=== PATIENT | female | born 1950 | race Caucasian/White ===

== ENCOUNTER 2020-08-31 14:04 | Inpatient (IN) ==
[2020-08-31] MEDS ORDERED: TYLENOL 325 MG TAB PO PRN (19:01)
[2020-08-31] MEDS ORDERED: BENADRYL INJ 50 MG VIAL IVP PRN (19:01)
[2020-08-31] MEDS ORDERED: NS 500 ML IV 500 ML IV ONE (19:01)
[2020-08-31 19:46] LABS: BASOPHILS # (AUTO) 0.1 X10^3/uL (0.0-0.1); HEMATOCRIT 20.9 % (36.0-47.0); LYMPHOCYTES # (AUTO) 1.8 X10^3/uL (1.3-2.9); NEUTROPHILS # (AUTO) 3.1 x10^3/uL (2.2-4.8); WHITE BLOOD COUNT 5.3 X10^3/uL (3.6-10.0)
[2020-08-31 19:51] LABS: BASOPHILS % (AUTO) 1.4 % (0.2-1.0); EOSINOPHILS % (AUTO) 0.7 % (0.9-2.9); LYMPHOCYTES % (AUTO) 33.2 % (21.0-51.0); MEAN CORPUSCULAR HEMOGLOBIN 24.5 pg (27.0-34.0); MEAN CORPUSCULAR HGB CONC 31.2 g/dL (33.0-35.0); MEAN CORPUSCULAR VOLUME 78.3 fL (80.0-100.0); MEAN PLATELET VOLUME 7.8 fL (7.4-11.0); MONOCYTES # (AUTO) 0.4 x10^3/uL (0.3-0.8); MONOCYTES % (AUTO) 6.9 % (0.0-13.0); NEUTROPHILS % (AUTO) 57.8 % (42.0-75.0); PLATELET COUNT 440 X10^3/uL (150.0-450.0); RED BLOOD COUNT 2.66 X10^6/uL (3.5-5.4); RED CELL DISTRIBUTION WIDTH 17.3 % (11.6-16.5)
[2020-08-31 19:53] LABS: HEMOGLOBIN 6.5 g/dL (12.0-16.0)
[2020-08-31 19:57] LABS: ALANINE AMINOTRANSFERASE 20 Units/L (12-78); ALBUMIN 3.9 g/dL (3.4-5.0); ALKALINE PHOSPHATASE 73 Units/L (46-116); ASPARTATE AMINO TRANSFERASE 15 Units/L (15-37); BLOOD UREA NITROGEN 17 mg/dL (7-18); CALCIUM 9.4 mg/dL (8.5-10.1); CARBON DIOXIDE 25.9 mmol/L (21-32); CHLORIDE 105 mmol/L (98-107); COR NA(FOR HYPERGLY) 141 mmol/L (136-145); SODIUM 140 mmol/L (136-145); TOTAL PROTEIN 7.4 g/dL (6.4-8.2); eGFR NON BLACK RACES > 60 (>60)
--- NOTE | 2020-08-31 20:44 | DR.CONSULT ---
<Zoe Lofton - Last Filed: 08/31/20 20:39> Consult - Consultation for Day of: Date: 08/31/20 - Chief Complaint Chief Complaint: Patient referred for GI Bleed. Patient with complaints of dysphagia, melena 2-3 weeks ago. - Allergies Allergies/Adverse Reactions: Allergies Allergy/AdvReac Type Severity Reaction Status Date / Time No Known Drug Allergies Allergy Verified 08/31/20 19:15 [NKDA] - History of Present Illness History of Present Illness: Patient is a 70 yo female who was referred for GI Bleed. Patient with complaints of dysphagia, melena 2-3 weeks ago. Patien denies dyspepsia, nausea, vomiting, abdominal pain, consitpation, diarrhea and hematochezia. Last colon and EGD was [address] Toscano. Hgb 6.5, Hct 20.9, Plt 440, BUN 17, Creatinine 0.80, T. Bili 0.5, AST 15, ALT 20, ALP 73 - Past Medical History Past Medical History: Diabetes, Hypertension - Social History Does patient currently use any type of tobacco product: No Have you used tobacco products in the last 12 months: No Type of Tobacco Use: None Alcohol Use: None Drug Use: None - Medications Home Medications: No Known Drug Allergies [NKDA] Allergy (Verified 08/31/20 19:15) - Review of Systems Gastrointestinal: Melena. denies: See HPI, Nausea, Vomiting, Abdominal Pain, Diarrhea, Constipation, Hematochezia, Other Oriented: Normal Eyes: Normal Ear: Normal Nose: Normal Throat: Normal Respiratory: Clear Throughout Cardiovascular: Normal Auscultation: Bowel Sounds: Normal Palpation: Normal, Other (no distention). negative: Spleen Enlarged, Liver Enlarged, Mass Pulsatile Tenderness: Normal (non tender) Skin: Normal Musculoskeletal: Normal Psychiatric: Normal Mood Description: Calm Affect: Normal Speech Pattern: Clear, Appropriate - Plan Plan: Assessment. 1. Anemia r/o GI Loss. Plan. 1. Monitor Hgb, Transfuse, Protonix IV, EGD in am. Plan reviewed with Dr. Gomez <NATALIO GOMEZ - Last Filed: 09/10/20 13:01> Consult - Medications Home Medications: No Known Drug Allergies [NKDA] Allergy (Verified 08/31/20 19:15) CONTINUE taking the following medications clopidogrel 75 mg PO DAILY 08/31/20 [History] eszopiclone 3 mg PO HS 08/31/20 [History] glipizide 2.5 mg PO BID 08/31/20 [History] metoprolol succinate 50 mg PO DAILY 08/31/20 [History] rosuvastatin 40 mg PO QHS 08/31/20 [History] New Prescriptions clonazepam [Klonopin] 0.5 mg PO QHS PRN #30 tab MDD 1 09/03/20 [Rx] famotidine [Pepcid] 40 mg PO BID #60 tab 09/03/20 [Rx] iron-folic acid-mv, min cmb#15 [Hemocyte-Plus] 1 cap PO QAM #30 cap 09/03/20 [Rx] pantoprazole 40 mg PO BID #60 tab 09/03/20 [Rx] - Physical Exam Vital Signs: Temperature 98.0 F Pulse Rate [Left Brachial] 86 Pulse Rate [Right Brachial] 79 Pulse Rate [Brachial] 71 Respiratory Rate 20 Blood Pressure [Right Arm] 139/63 Blood Pressure [Left Arm] 137/63 O2 Sat by Pulse Oximetry 92 Oriented: negative: Normal, Time, Person, Place, Not Oriented, Unable to test, Other Eyes: negative: Normal, Blurred Vision, Diplopia, Discharge, Pain, Redness, Photophobia, Other Ear: negative: Normal, Right, Left, Swelling, Ecchymosis, Hemotypanum, Abrasion, Laceration Nose: negative: Normal, Injected, Discharge, Blood, Other Respiratory: Clear Throughout Cardiovascular: negative: Normal, Tachycardia, Bradycardia, Irregular, S3, S4, Systolic, Diastolic, Murmur, Edema, Other Auscultation: Bowel Sounds: negative: Normal, Bruit, Absent, Increased, Decreased, High Pitched, Other Tenderness: negative: Normal, Diffuse, RUQ, RLQ, LUQ, LLQ, Epigastric, Periumbilical, Suprapubic, Mild, Moderate, Severe, Rebound, Guarding, Rigidity, Other Psychiatric: Normal Mood Description: Calm Speech Pattern: Clear, Appropriate
[2020-08-31 21:38] VITALS: BMI 29.8
[2020-08-31] MEDS: PROTONIX INJ 40 MG VIAL IVP SCH (22:30)
[2020-08-31] MEDS: PEPCID 20 MG IV PREMIX* 20 MG/50 ML BAG IV SCH (22:30)
[2020-08-31] MEDS: NS 1000 ML 1,000 ML IV SCH (22:30)
[2020-09-01] MEDS: PROTONIX INJ 40 MG VIAL IVP SCH ×3 (00:30→21:17)
[2020-09-01] MEDS: PEPCID 20 MG IV PREMIX* 20 MG/50 ML BAG IV SCH ×3 (00:30→21:17)
[2020-09-01 04:51] LABS: BASOPHILS # (AUTO) 0.1 X10^3/uL (0.0-0.1); BASOPHILS % (AUTO) 1.6 % (0.2-1.0); EOSINOPHILS # (AUTO) 0.1 x10^3/uL (0.0-0.2); EOSINOPHILS % (AUTO) 1.3 % (0.9-2.9); HEMATOCRIT 27.4 % (36.0-47.0); HEMOGLOBIN 8.7 g/dL (12.0-16.0); LYMPHOCYTES # (AUTO) 2.5 X10^3/uL (1.3-2.9); LYMPHOCYTES % (AUTO) 51.5 % (21.0-51.0); MEAN CORPUSCULAR HEMOGLOBIN 25.9 pg (27.0-34.0); MEAN CORPUSCULAR HGB CONC 31.6 g/dL (33.0-35.0); MEAN CORPUSCULAR VOLUME 82.1 fL (80.0-100.0); MEAN PLATELET VOLUME 7.4 fL (7.4-11.0); MONOCYTES # (AUTO) 0.5 x10^3/uL (0.3-0.8); MONOCYTES % (AUTO) 10.9 % (0.0-13.0); NEUTROPHILS # (AUTO) 1.7 x10^3/uL (2.2-4.8); NEUTROPHILS % (AUTO) 34.7 % (42.0-75.0); PLATELET COUNT 325 X10^3/uL (150.0-450.0); RED BLOOD COUNT 3.34 X10^6/uL (3.5-5.4); RED CELL DISTRIBUTION WIDTH 17.5 % (11.6-16.5); WHITE BLOOD COUNT 4.9 X10^3/uL (3.6-10.0)
[2020-09-01 05:01] LABS: ALANINE AMINOTRANSFERASE 16 Units/L (12-78); ALBUMIN 3.3 g/dL (3.4-5.0); ALKALINE PHOSPHATASE 63 Units/L (46-116); ASPARTATE AMINO TRANSFERASE 10 Units/L (15-37); BLOOD UREA NITROGEN 15 mg/dL (7-18); CALCIUM 8.6 mg/dL (8.5-10.1); CARBON DIOXIDE 27.4 mmol/L (21-32); CHLORIDE 108 mmol/L (98-107); COR CA(FOR HYPOALB) 9.2 mg/dL (8.5-10.1); CREATININE 0.63 mg/dL (0.55-1.02); SODIUM 143 mmol/L (136-145); TOTAL PROTEIN 6.4 g/dL (6.4-8.2); eGFR NON BLACK RACES > 60 (>60)
--- NOTE | 2020-09-01 10:07 | DR.H&P ---
H&P - History & Physical for Day of: H&P Date: 08/31/20 - Chief Complaint Chief Complaint: ANEMIA, SOB, WEAKNESS, MELENA - History of Present Illness History of Present Illness: IS A 70 YEAR OLD PATIENT OF [facility]. [facility] CONSULTED US FOR DIRECT ADMISSION OF PATIENT DUE TO ANEMIA, MELENA, SOB, AND GENERALIZED WEAKNESS. OUTPATIENT LABS WERE OBTAINED ON 08/28/2020 AND WERE REPORTED BACK ON 08/31/2020. HER HGB ON THOSE LABS WAS 6.2, HCT 21.3, RBC 2.49. PATIENT REPORTS THAT SHE HAS HAD DARK, TARRY STOOLS FOR THE PAST THREE WEEKS. SHE DENIES DYSPEPSIA, NAUSEA, VOMITING, ABDOMINAL PAIN, CONSTIPATION, DIARRHEA, OR HEMATOCHEZIA. HER LAST COLONOSCOPY OR EGD WAS FOUR YEARS AGO WITH . HER PMH INCLUDES CAD, CO, HYPERLIPIDEMIA, CARDIAC STENTS X 3, DIABETES MELLITUS TYPE II, ANEMIA, , AND TONSILLECTOMY. ON ARRIVAL TO THE HOSPITAL, VITALS WERE 98.0-88-20-98%-130/66. LABS WERE OBTAINED. ABNORMAL LAB VALUES INCLUDED THE FOLLOWING: RBC 2.66, HGB 6.5, HCT 20.9, GLUCOSE 152. WE ORDERED FOR A STOOL TO BE COLLECTED TO CHECK FOR OCCULT BLOOD. WE CONSULTED WITH . HE PLANS FOR AN EGD TODAY. WE ARE IN AGREEMENT WITH PLANS. SHE WAS STARTED ON NORMAL SALINE AT 80 ML/HR, PROTONIX 40MG IV BID, PEPCID 20MG IV Q12H. WE TRANSFUSED TWO UNITS OF PRBC ON ADMISSION AND PRE-MEDICATED WITH BENADRYL 25MG IV X 1 AND TYLENOL 650MG PO X 1 PRIOR TO TRANSFUSION. WE WILL REVIEW HER HOME MEDICATIONS TODAY. OTHERWISE, WE WILL CONTINUE WITH CURRENT PLAN OF CARE AND FOLLOW UP WITH AM LABS. TIME SPENT ON CLINICAL ASSESSMENT, REVIEWING LABS AND IMAGING, DECISION MAKING, AND DOCUMENTATION GREATER THAN 75 MINUTES. - Past Medical History Past Medical History: Anemia, Coronary Artery Disease, Diabetes, Dyslipidemia, Hypertension, CO - Past Surgical History Surgical History: Angioplasty/Stents, , Tonsillectomy - Family History Family Medical History: Diabetes Mellitus, CO, Hypertension - Social History Does patient currently use any type of tobacco product: No Have you used tobacco products in the last 12 months: No Type of Tobacco Use: None Alcohol Use: Occasionally Drug Use: None - Medications Home Medications: No Known Drug Allergies [NKDA] Allergy (Verified 08/31/20 19:15) CONTINUE taking the following medications clopidogrel 75 mg PO DAILY 08/31/20 [History] eszopiclone 3 mg PO HS 08/31/20 [History] glipizide 2.5 mg PO BID 08/31/20 [History] metoprolol succinate 50 mg PO DAILY 08/31/20 [History] rosuvastatin 40 mg PO QHS 08/31/20 [History] - Review of Systems Constitutional: Weakness, Malaise Eyes: No Symptoms Reported ENT: No Symptoms Reported Respiratory: Shortness of Breath Cardiovascular: No Symptoms Reported Gastrointestinal: See HPI, Melena. denies: Nausea, Vomiting, Abdominal Pain, Diarrhea, Constipation, Hematochezia Genitourinary: No Symptoms Reported Musculoskeletal: No Symptoms Reported Skin: No Symptoms Reported Neurological: Weakness - Physical Exam Vital Signs: Temperature 98.9 F Pulse Rate [Right Brachial] 79 Pulse Rate [Brachial] 71 Respiratory Rate 18 Blood Pressure [Right Arm] 131/65 Blood Pressure [Left Arm] 157/65 O2 Sat by Pulse Oximetry 96 Oriented: Normal Eyes: Normal Ear: Normal Nose: Normal Throat: Normal Respiratory: Diminished Throughout Cardiovascular: Normal : Normal Auscultation: Bowel Sounds: Normal Palpation: Normal Tenderness: Normal Skin: Normal Musculoskeletal: Normal Psychiatric: Normal Mood Description: Calm Affect: Normal Speech Pattern: Clear - Assessment/Plan (1) Anemia Qualifiers: Anemia type: iron deficiency Iron deficiency anemia type: chronic blood loss Qualified Code(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
[2020-09-01] MEDS ORDERED: XYLOCAINE 1 % (PLAIN) ONE (15:10)
[2020-09-01] MEDS ORDERED: DIPRIVAN VIAL ONE (15:10)
[2020-09-01] MEDS ORDERED: DIPRIVAN VIAL 20 ML ONE (15:12)
[2020-09-01] MEDS ORDERED: KETALAR ONE (15:12)
[2020-09-01] MEDS ORDERED: XYLOCAINE 2 % (PLAIN) ONE (15:12)
[2020-09-01] MEDS: TOPROL XL PO SCH (16:54)
[2020-09-01] MEDS: CRESTOR TAB 10 MG PO SCH (21:16)
[2020-09-01] MEDS: NS 1000 ML 1,000 ML IV SCH (21:23)
[2020-09-02] MEDS: NS 1000 ML 1,000 ML IV SCH ×2 (05:37→11:29)
[2020-09-02 06:29] LABS: BASOPHILS # (AUTO) 0.1 X10^3/uL (0.0-0.1); BASOPHILS % (AUTO) 0.8 % (0.2-1.0); EOSINOPHILS # (AUTO) 0.1 x10^3/uL (0.0-0.2); EOSINOPHILS % (AUTO) 1.2 % (0.9-2.9); HEMATOCRIT 26.6 % (36.0-47.0); HEMOGLOBIN 8.7 g/dL (12.0-16.0); LYMPHOCYTES % (AUTO) 29.3 % (21.0-51.0); MEAN CORPUSCULAR HEMOGLOBIN 26.4 pg (27.0-34.0); MEAN CORPUSCULAR HGB CONC 32.7 g/dL (33.0-35.0); MEAN CORPUSCULAR VOLUME 80.8 fL (80.0-100.0); MEAN PLATELET VOLUME 7.5 fL (7.4-11.0); MONOCYTES # (AUTO) 0.6 x10^3/uL (0.3-0.8); MONOCYTES % (AUTO) 8.2 % (0.0-13.0); NEUTROPHILS # (AUTO) 4.2 x10^3/uL (2.2-4.8); NEUTROPHILS % (AUTO) 60.5 % (42.0-75.0); PLATELET COUNT 307 X10^3/uL (150.0-450.0); RED CELL DISTRIBUTION WIDTH 17.9 % (11.6-16.5); WHITE BLOOD COUNT 6.9 X10^3/uL (3.6-10.0)
[2020-09-02 06:38] LABS: ALANINE AMINOTRANSFERASE 17 Units/L (12-78); ALBUMIN 3.2 g/dL (3.4-5.0); ALKALINE PHOSPHATASE 62 Units/L (46-116); ASPARTATE AMINO TRANSFERASE 12 Units/L (15-37); BLOOD UREA NITROGEN 12 mg/dL (7-18); CALCIUM 8.5 mg/dL (8.5-10.1); CARBON DIOXIDE 27.2 mmol/L (21-32); CHLORIDE 109 mmol/L (98-107); COR CA(FOR HYPOALB) 9.1 mg/dL (8.5-10.1); SODIUM 142 mmol/L (136-145); TOTAL PROTEIN 6.3 g/dL (6.4-8.2); eGFR NON BLACK RACES > 60 (>60)
[2020-09-02] MEDS: PEPCID 20 MG IV PREMIX* 20 MG/50 ML BAG IV SCH ×2 (08:37→21:19)
[2020-09-02] MEDS: DULCOLAX TAB EC 5 MG PO SCH ×2 (08:37→18:12)
[2020-09-02] MEDS: TOPROL XL PO SCH (08:37)
[2020-09-02] MEDS: PROTONIX INJ 40 MG VIAL IVP SCH ×2 (08:37→21:19)
--- NOTE | 2020-09-02 10:39 | RAD ---
HISTORYPreop colonoscopySTUDYChest AP portableCOMPARISONNoneFINDINGSThe heart is enlarged. No definite congestive heart failure is noted. No acute alveolar infiltrates are present. No pleural effusions are identified. Bilateral interstitial infiltrates are present. There of uncertain duration without previous films with which to compare. Bony thorax is unremarkable.IMPRESSIONMild cardiomegaly without congestive heart failureDiffuse mild interstitial lung changes of uncertain durationElectronically signed by: MICHELLE ESCOBAR (Sep 02, 2020 10:37:35)
[2020-09-02] MEDS ORDERED: MIRALAX POWDER (255 GRAMS BTL) PO ONE (11:33)
--- NOTE | 2020-09-02 11:33 | PCM.PROG ---
Progress Note - Progress Note for Day of Date of Exam: 09/02/20 - Subjective Subjective: WAS ADMITTED FOR TREATMENT OF ANEMIA, GI BLEED, MELENA, AND GENERALIZED WEAKNESS. SHE HAS RECEIVING TWO UNITS OF PRBC SINCE ADMISSION. TODAY, SHE IS ALERT AND ORIENTED, LYING IN BED ON MORNING ROUNDS. SHE CONTINUES WITH COMPLAINTS OF WEAKNESS, BUT DENIES ANY DARK, TARRY STOOLS SINCE ADMISSION. SHE CONTINUES WITH COMPLAINTS OF SHORTNESS OF BREATH AT TIMES. ON EXAMINATION, HEART IS REGULAR IN RATE AND RHYTHM. BILATERAL LUNGS ARE NOTED WITH DIMINISHED LUNG SOUNDS THROUGHOUT. ABDOMEN IS ROUND, SOFT, AND NON-TENDER WITH NORMAL BOWEL SOUNDS NOTED IN ALL QUADRANTS. HER VITALS THIS MORNING ARE: 98.6-80-20-94%-137/66. LABS WERE OBTAINED. ABNORMAL LAB VALUES INCLUDE THE FOLLOWING: RBC 3.30, HGB 8.7, HCT 26.6, CHLORIDE 109, AST 12, TOTAL PROTEIN 6.3, ALBUMIN 3.2. AN EGD WAS PERFORMED BY YESTERDAY. IT REVEALED: ANTRAL GASTRIC ULCER, EROSIVE GASTRITIS, 5CM HIATAL HERNIA, DISTAL ESOPHAGITIS WITH A STRICTURE, AND GASTRIC POLYPS. WE OBTAINED A CHEST XRAY DUE TO HER COMPLAINTS OF SHORTNESS OF BREATH. IT REVEALED: The heart is enlarged. No definite congestive heart failure is noted. No acute alveolar infiltrates are present. No pleural effusions are identified. Bilateral interstitial infiltrates are present. There of uncertain duration without previous films with which to compare. Bony thorax is unremarkable. SHE IS CURRENTLY RECEIVING NORMAL SALINE AT 80 ML/HR, PROTONIX 40MG IV BID, PEPCID 20MG IV Q12H, DULCOLAX 10MG PO BID, METOPROLOL SUCCINATE 50MG PO DAILY, MIRALAX 17G PO DAILY, CRESTOR 40MG PO HS. TODAY, WE WILL ADD HEMOCYTE PLUS 1 TABLET DAILY AND CHECK A BNP LEVEL AND OBTAIN AN ECHO. OTHERWISE, WE PLAN TO FOLLOW UP WITH AM LABS AND CONTINUE TO MONITOR. - Past Medical Family Social History Past Med/Fam/Surg Hx: No changes since H&P Allergies: Allergies No Known Drug Allergies [NKDA] Allergy (Verified 08/31/20 19:15) - Review of Systems ROS: No change since H&P - Vital Signs and I&O's Vital Signs: Temperature 98.6 F Pulse Rate [Left Brachial] 80 Pulse Rate [Right Brachial] 75 Pulse Rate [Brachial] 71 Respiratory Rate 20 Blood Pressure [Right Arm] 126/59 Blood Pressure [Left Arm] 137/66 O2 Sat by Pulse Oximetry 94 Intake and Output: Intake & Output 08/30/20 08/31/20 09/01/20 09/02/20 11:59 11:59 11:59 11:59 Intake Total 1631 / 1631 1754 / 1754 Output Total 2049 Balance 1631 / 1631 -296 / -296 - Physical Exam Oriented: Normal Eyes: Normal Ear: Normal Nose: Normal Throat: Normal Respiratory: Normal, Generalized, Diminished Cardiovascular: Normal : Normal Auscultation: Bowel Sounds: Normal Palpation: Normal Tenderness: Normal Skin: Normal Musculoskeletal: Normal Psychiatric: Normal Mood Description: Calm Affect: Normal Speech Pattern: Clear, Appropriate - Laboratory and Diagnostics Result Diagrams: 09/02/20 05:20 09/02/20 05:20 Labs: Laboratory WBC 6.9 X10^3/uL (3.6-10.0) 09/02/20 05:20 RBC 3.30 X10^6/uL (3.5-5.4) L 09/02/20 05:20 Hgb 8.7 g/dL (12.0-16.0) L 09/02/20 05:20 Hct 26.6 % (36.0-47.0) L 09/02/20 05:20 MCV 80.8 fL (80.0-100.0) 09/02/20 05:20 MCH 26.4 pg (27.0-34.0) L 09/02/20 05:20 MCHC 32.7 g/dL (33.0-35.0) L 09/02/20 05:20 RDW 17.9 % (11.6-16.5) H 09/02/20 05:20 Plt Count 307 X10^3/uL (150.0-450.0) 09/02/20 05:20 MPV 7.5 fL (7.4-11.0) 09/02/20 05:20 Neut % (Auto) 60.5 % (42.0-75.0) 09/02/20 05:20 Lymph % (Auto) 29.3 % (21.0-51.0) 09/02/20 05:20 [place] % (Auto) 8.2 % (0.0-13.0) 09/02/20 05:20 Eos % (Auto) 1.2 % (0.9-2.9) 09/02/20 05:20 Baso % (Auto) 0.8 % (0.2-1.0) 09/02/20 05:20 Neut # (Auto) 4.2 x10^3/uL (2.2-4.8) 09/02/20 05:20 Lymph # (Auto) 2.0 X10^3/uL (1.3-2.9) 09/02/20 05:20 [place] # (Auto) 0.6 x10^3/uL (0.3-0.8) 09/02/20 05:20 Eos # (Auto) 0.1 x10^3/uL (0.0-0.2) 09/02/20 05:20 Baso # (Auto) 0.1 X10^3/uL (0.0-0.1) 09/02/20 05:20 Absolute Nucleated RBC 0.0 /100WBC 09/02/20 05:20 Sodium 142 mmol/L (136-145) 09/02/20 05:20 Corrected Sodium TNP 09/02/20 05:20 Potassium 3.6 mmol/L (3.5-5.1) 09/02/20 05:20 Chloride 109 mmol/L (98-107) H 09/02/20 05:20 Carbon Dioxide 27.2 mmol/L (21-32) 09/02/20 05:20 BUN 12 mg/dL (7-18) 09/02/20 05:20 Creatinine 0.60 mg/dL (0.55-1.02) 09/02/20 05:20 Est GFR (MDRD) Af Amer > 60 (>60) 09/02/20 05:20 Est GFR (MDRD) Non-Af > 60 (>60) 09/02/20 05:20 Glucose 95 mg/dL (65-99) 09/02/20 05:20 Calcium 8.5 mg/dL (8.5-10.1) 09/02/20 05:20 Corrected Calcium 9.1 mg/dL (8.5-10.1) 09/02/20 05:20 Magnesium 2.2 mg/dL (1.7-2.9) 09/01/20 04:40 Total Bilirubin 1.00 mg/dL (0.2-1.0) 09/02/20 05:20 AST 12 Units/L (15-37) L 09/02/20 05:20 ALT 17 Units/L (12-78) 09/02/20 05:20 Alkaline Phosphatase 62 Units/L (46-116) 09/02/20 05:20 Total Protein 6.3 g/dL (6.4-8.2) L 09/02/20 05:20 Albumin 3.2 g/dL (3.4-5.0) L 09/02/20 05:20 Globulin 3.1 g/dL (2.5-4.5) 09/02/20 05:20 Albumin/Globulin Ratio 1.0 Ratio (1.1-2.1) L 09/02/20 05:20 Stool Description Fob tube 09/01/20 17:35 Stl Occult Blood (IFOB) Negative (NEGATIVE) 09/01/20 17:35 SARS-CoV-2 (PCR) Negative (NEGATIVE) 08/31/20 16:38 Influenza Type A (PCR) Negative (NEGATIVE) 08/31/20 16:38 Influenza Type B (PCR) Negative (NEGATIVE) 08/31/20 16:38 RSV (PCR) Negative (NEGATIVE) 08/31/20 16:38 Tissue Pathology To follow 09/01/20 15:20 Blood Type A POSITIVE 08/31/20 19:30 Antibody Screen Negative 08/31/20 19:30 Crossmatch See Detail 08/31/20 19:30 - Plan (1) Anemia Status: Acute Qualifiers: Anemia type: iron deficiency Iron deficiency anemia type: chronic blood loss Qualified Code(s): D50.0 - Iron deficiency anemia secondary to blood loss (chronic) Plan: MONITOR H&H, COLONOSCOPY TOMORROW, CONTINUE TO MONITOR (2) GI bleed Status: Acute Qualifiers: GI bleed type/associated pathology: melena Qualified Code(s): K92.1 - Melena (3) Generalized weakness Status: Acute (4) Complaint of melena Status: Acute
[2020-09-02] MEDS: HEMOCYTE-PLUS PO SCH (11:36)
[2020-09-02] MEDS ORDERED: MIRALAX POWDER (255 GRAMS BTL) PO NR (12:00)
[2020-09-02] MEDS: CRESTOR TAB 10 MG PO SCH (21:19)
[2020-09-03] MEDS: DULCOLAX TAB EC 5 MG PO SCH (00:52)
[2020-09-03] MEDS: NS 1000 ML 1,000 ML IV SCH ×2 (00:53→08:10)
[2020-09-03 06:14] LABS: BASOPHILS # (AUTO) 0.1 X10^3/uL (0.0-0.1); BASOPHILS % (AUTO) 1.1 % (0.2-1.0); EOSINOPHILS # (AUTO) 0.2 x10^3/uL (0.0-0.2); EOSINOPHILS % (AUTO) 4.5 % (0.9-2.9); HEMATOCRIT 26.9 % (36.0-47.0); HEMOGLOBIN 8.7 g/dL (12.0-16.0); LYMPHOCYTES # (AUTO) 1.9 X10^3/uL (1.3-2.9); LYMPHOCYTES % (AUTO) 39.5 % (21.0-51.0); MEAN CORPUSCULAR HEMOGLOBIN 25.9 pg (27.0-34.0); MEAN CORPUSCULAR HGB CONC 32.5 g/dL (33.0-35.0); MEAN CORPUSCULAR VOLUME 79.8 fL (80.0-100.0); MEAN PLATELET VOLUME 7.8 fL (7.4-11.0); MONOCYTES # (AUTO) 0.5 x10^3/uL (0.3-0.8); NEUTROPHILS # (AUTO) 2.2 x10^3/uL (2.2-4.8); NEUTROPHILS % (AUTO) 44.9 % (42.0-75.0); PLATELET COUNT 315 X10^3/uL (150.0-450.0); RED BLOOD COUNT 3.37 X10^6/uL (3.5-5.4); RED CELL DISTRIBUTION WIDTH 18.5 % (11.6-16.5); WHITE BLOOD COUNT 4.8 X10^3/uL (3.6-10.0)
[2020-09-03 06:41] LABS: ALANINE AMINOTRANSFERASE 20 Units/L (12-78); ALBUMIN 3.3 g/dL (3.4-5.0); ALKALINE PHOSPHATASE 63 Units/L (46-116); ASPARTATE AMINO TRANSFERASE 21 Units/L (15-37); BLOOD UREA NITROGEN 7 mg/dL (7-18); CALCIUM 8.8 mg/dL (8.5-10.1); CARBON DIOXIDE 25.7 mmol/L (21-32); CHLORIDE 108 mmol/L (98-107); COR CA(FOR HYPOALB) 9.4 mg/dL (8.5-10.1); CREATININE 0.58 mg/dL (0.55-1.02); SODIUM 141 mmol/L (136-145); TOTAL PROTEIN 6.6 g/dL (6.4-8.2); eGFR NON BLACK RACES > 60 (>60)
[2020-09-03] MEDS ORDERED: POTASSIUM CHL 60 MEQ/NS 0.45% 500 ML IV PRN (07:27)
[2020-09-03] MEDS ORDERED: POTASSIUM CHL 40 MEQ/NS 0.45% 500 ML IV PRN (07:27)
[2020-09-03] MEDS ORDERED: K-DUR TAB 20 MEQ PO PRN (07:27)
[2020-09-03] MEDS ORDERED: K-RIDER 10 MEQ/NS 100 ML 10 MEQ/100 ML BAG IV PRN (07:27)
[2020-09-03] MEDS ORDERED: POTASSIUM CHLORIDE LIQ 20 MEQ UDC PO PRN (07:27)
[2020-09-03] MEDS ORDERED: KLOR-CON PO PRN (07:27)
[2020-09-03] MEDS ORDERED: MICRO K EXTEN CAP 10 MEQ PO PRN (07:27)
[2020-09-03] MEDS ORDERED: DIPRIVAN VIAL 40 ML ONE (08:04)
[2020-09-03] MEDS: HEMOCYTE-PLUS PO SCH (09:31)
[2020-09-03] MEDS: PROTONIX INJ 40 MG VIAL IVP SCH (09:31)
[2020-09-03] MEDS: PEPCID 20 MG IV PREMIX* 20 MG/50 ML BAG IV SCH (09:31)
[2020-09-03] MEDS: TOPROL XL PO SCH (09:31)
[2020-09-03 10:33] VITALS: BP 139/63
== END 2020-09-03 12:25 | disposition home or self-care (01) | DRG 327 ==
LOC: MED/SURG 15:51
PROVIDERS: ADMIT Internal Medicine; ATTEND Internal Medicine